=== PATIENT | male | born 1995 | race Caucasian/White ===

== ENCOUNTER 2018-02-17 10:55 | Emergency (ER) | payer SELFPAY ==
[~2018-02-17] VITALS: Ht 162.6 cm; Wt 91.7 kg
[~2018-02-17 10:55] MED LIST: AMOXICILLIN 50500 MG PO; PROAIR HFA0.09 MG/AC IH
[2018-02-17 11:07] VITALS: BP 125/74; TEMP 98.7
[2018-02-17 12:40] LABS: COLLECTION METHOD CLEAN CATCH
[2018-02-17 12:49] LABS: MUCOUS Present /lpf; PH 7 (5-8); SQUAMOUS EPITHELIAL 0-2 /hpf; URINE APPEARANCE Clear; URINE BACTERIA Rare /hpf; URINE BILIRUBIN Negative (NEGATIVE); URINE BLOOD 1+ (NEGATIVE); URINE COLOR Yellow; URINE GLUCOSE Negative (NEGATIVE); URINE KETONE Negative (NEGATIVE); URINE LEUKOCYTE ESTERASE Negative (NEGATIVE); URINE NITRATE Negative (NEGATIVE); URINE PROTEIN(semi-quant) Negative (NEGATIVE); URINE RBC 0-2 /hpf; URINE UROBILINOGEN Negative (NEGATIVE)
[2018-02-17] MEDS ORDERED: LIDODERM 5% PATC1 EA TP (13:00)
[2018-02-17] MEDS ORDERED: FLEXERIL 1010 MG/TAB PO (13:00)
[2018-02-17 13:12] VITALS: PULSE 88
== END 2018-02-17 13:12 | disposition home or self-care (01) ==
LOC: COL.ER 10:55
PROVIDERS: Physician Assistant
DX: M54.9 Dorsalgia, unspecified (principal)

== ENCOUNTER 2018-04-03 12:47 | Emergency (ER) | payer MEDICAID ==
[~2018-04-03] VITALS: Ht 162.6 cm; Wt 90.0 kg
[~2018-04-03 12:47] MED LIST changes: +FLEXERIL 1010 MG/TAB PO; +LIDODERM 5% PATC1 EA TP
[2018-04-03 12:53] VITALS: BP 119/68; TEMP 98.6
[2018-04-03] MEDS ORDERED: AMOXICILLIN 50500 MG PO (14:13)
[2018-04-03 14:19] VITALS: PULSE 89
== END 2018-04-03 14:19 | disposition home or self-care (01) ==
LOC: COL.ER 12:47
DX: J32.9 Chronic sinusitis, unspecified (principal); R51 Headache

== ENCOUNTER 2018-05-25 21:54 | Emergency (ER) | payer MEDICAID ==
[~2018-05-25] VITALS: Ht 162.6 cm; Wt 90.9 kg
[2018-05-25 22:00] VITALS: BP 131/69; TEMP 99.6
[2018-05-25] MEDS ORDERED: ZITHROMAX Z PA250 MG PO (23:50)
[2018-05-26 00:13] VITALS: PULSE 105
== END 2018-05-26 00:14 | disposition home or self-care (01) ==
LOC: COL.ER 21:54
DX: J06.9 Acute upper respiratory infection, unspecified (principal)

== ENCOUNTER 2018-09-26 17:10 | Emergency (ER) | payer MEDICAID ==
[~2018-09-26] VITALS: Ht 162.6 cm; Wt 90.9 kg
[~2018-09-26 17:10] MED LIST changes: +ZITHROMAX Z PA250 MG PO
[2018-09-26 17:49] VITALS: TEMP 98.5
[2018-09-26 19:49] VITALS: BP 118/59; PULSE 76
== END 2018-09-26 19:47 | disposition home or self-care (01) ==
LOC: COL.ER 17:10
DX: S61.213A Laceration without foreign body of left middle finger without damage to nail, initial encounter (principal); Z23 Encounter for immunization; F17.210 Nicotine dependence, cigarettes, uncomplicated; W26.8XXA Contact with other sharp object(s), not elsewhere classified, initial encounter; Y92.59 Other trade areas as the place of occurrence of the external cause

== ENCOUNTER 2018-10-12 11:53 | Emergency (ER) | payer MEDICAID ==
[2018-10-12 11:57] VITALS: BP 116/76; PULSE 81; TEMP 97.6
== END 2018-10-12 11:58 | disposition home or self-care (01) ==
LOC: COL.ER 11:53
DX: S61.213D Laceration without foreign body of left middle finger without damage to nail, subsequent encounter (principal); X58.XXXD Exposure to other specified factors, subsequent encounter

== ENCOUNTER 2020-01-26 23:08 | Emergency (ER) | payer MEDICAID ==
[~2020-01-26] VITALS: Ht 162.6 cm; Wt 84.1 kg
[2020-01-26 23:20] VITALS: BP 100/65; TEMP 97.8
[2020-01-26 23:36] LABS: COLLECTION METHOD CLEAN CATCH
[2020-01-26] MEDS ORDERED: CLOTRIMAZOLE ANTIF1% TP (23:45)
[2020-01-27 00:13] LABS: MUCOUS Present /lpf; PH 7 (5-8); SQUAMOUS EPITHELIAL None Seen /hpf; URINE APPEARANCE Hazy; URINE BACTERIA None Seen /hpf; URINE BILIRUBIN Negative (NEGATIVE); URINE BLOOD Negative (NEGATIVE); URINE COLOR Yellow; URINE GLUCOSE Negative (NEGATIVE); URINE KETONE Negative (NEGATIVE); URINE LEUKOCYTE ESTERASE Negative (NEGATIVE); URINE NITRATE Negative (NEGATIVE); URINE PROTEIN(semi-quant) Negative (NEGATIVE); URINE RBC 0-2 /hpf
[2020-01-27 00:20] VITALS: PULSE 66
== END 2020-01-27 00:18 | disposition home or self-care (01) ==
LOC: COL.ER 23:08
PROVIDERS: Emergency Medicine
DX: N48.1 Balanitis (principal); F17.210 Nicotine dependence, cigarettes, uncomplicated